=== PATIENT | female | born 1970 | race Caucasian/White ===

== ENCOUNTER → 2020-10-25 11:15 | Outpatient (CLI) | payer OTHER, SELFPAY ==
--- NOTE | 2020-10-25 | DI.MRI.S_ITS ---
BREAST MRI OF BOTH BREASTS- WITH AUGMENTATION: 10/25/2020 CLINICAL: Previous silicone rupture. No prior exams were available for comparison. Informed consent was obtained from the patient. Implant sequence, axial T1, T2, and sagittal T1 images were obtained with a dedicated breast coil. Image quality: There is inhomogeneous fat saturation and motion artifact limiting evaluation. The patient terminated the study prior to the administration of intravenous contrast. Right breast: A silicone implant is demonstrated with internal curvilinear filling defects suggestive of intracapsular rupture. No evidence of extracapsular implant rupture. No definite free silicone demonstrated within the breast. No discrete mass is identified within the right breast in the absence of intravenous contrast Left breast: A silicone implant is demonstrated with internal curvilinear filling defects also suggestive of intracapsular rupture. No evidence of extracapsular implant rupture. No definite free silicone demonstrated within the breast. No discrete mass is identified in the absence of intravenous contrast. Miscellaneous: No axillary or internal mammary lymphadenopathy by size criteria. IMPRESSION: BENIGN 1. Bilateral silicone implants with findings suggestive of bilateral intracapsular implant rupture. No evidence of extracapsular rupture or definite free silicone in the breast. 2. No discrete mass identified in the breasts in the absence of intravenous contrast. Recommend followup screening mammography. This exam was interpreted at Station ID: [id number]. Electronically Signed By: Samm Sanders M.D. ddp/:10/25/2020 14:51:02 ACR BI-RADS Category 2: Benign Finding(s) 3342F
== END ==
PROVIDERS: PCP Nurse Practitioner Family; Referring Provider Nurse Practitioner Family; Visit Provider Nurse Practitioner Family
DX: T85.43XA Leakage of breast prosthesis and implant, initial encounter (principal)
CPT/HCPCS: 77047

== ENCOUNTER → 2021-09-26 13:29 | Outpatient (CLI) | payer OTHER, SELFPAY ==
--- NOTE | 2021-09-26 | DI.CT.S_ITS ---
PROCEDURE: CT CHEST WO CON INDICATIONS: Solitary pulmonary nodule TECHNIQUE: Noncontrast 2.0-2.5 mm thick sections acquired from the pulmonary apices to the posterior costophrenic angles. 7 mm thick axial MIP and 5 mm coronal and sagittal reformats were then acquired. A low radiation dose technique was utilized. COMPARISON: None. FINDINGS: Image quality: Diagnostic, given the low radiation dose technique. Lungs and pleura: Tiny 2 mm nodule in lateral periphery of left lower lobe is seen series 3, image 181. 3 mm solid nodule is seen in posterior medial left lower lobe series 3, image 223. 8 x 6 mm ground-glass density nodule is seen in anterior aspect of right upper lobe series 3 image 158. There is no pleural effusion or pneumothorax. Central and peripheral airway is patent. Mediastinum: Heart size is normal. No pericardial effusion. No mediastinal adenopathy by size criteria. Thoracic aorta and central pulmonary arteries are normal in size. Esophagus is normal in caliber. No hiatal hernia. Bones and chest wall: No suspicious bony lesions. No vertebral body compression fractures. Degenerative endplate changes throughout thoracic spine is seen. No axillary or supraclavicular adenopathy by size criteria. Thyroid gland is within normal limits. Bilateral breast implants are noted and are grossly intact on the current study. Abdomen: Visualized upper abdomen solid organs and bowel loops appear normal in the absence of contrast. IMPRESSION: 1. 8 x 6 mm ground-glass density nodule in right upper lobe with additional tiny 2-3 mm solid nodule seen in left lower lobe as described above. Comparison with prior study can be helpful. Otherwise, suggest CT chest follow-up in 6-12 months. 2. No mediastinal or hilar lymphadenopathy. 3. Bilateral breast implants are grossly intact. Fleischner Society criteria for SOLID lung nodule followup. Nodule size (mm)Low-risk patientHigh-risk patient<6 (single or multiple)No routine followup.Optional CT at 12 months. 6-8 (single or multiple)CT at 6-12 months, then optional CT at 18-24 mo.CT at 6-12 months, then CT at 18-24 months. >8 (single)CT at 3 months, PET-CT, or biopsy. Same as for low-risk pts. >8 (multiple)CT at 3-6 months, then optional CT at 18-24 mo.CT at 3-6 months, then CT at 18-24 months. Fleischner Society criteria for SUB-SOLID lung nodule followup. Solitary pure ground-glass nodules<6 mm (ground glass or part solid)No followup needed. 6 mm or larger (ground glass)CT at 6-12 months to confirm persistence, then CT every 2 years until 5 years.6 mm or larger (part solid)CT at 3-6 months to confirm persistence, then annual CT until 5 years if unchanged and solid component remains <6 mm. Multiple sub-solid nodules<6 mmCT at 3-6 months, then CT consider at 2 & 4 years for high risk patients. [address] at 3-6 months. Subsequent management based on most suspicious lesions. Recommendations do not apply to lung cancer screening, patients with immunosuppression, or patients with known primary cancer. Dictated by: Perfecto Dominguez M.D. on 09/27/2021 at 8:23 Approved by: Perfecto Dominguez M.D. on 09/27/2021 at 8:30
== END ==
PROVIDERS: PCP Physician Assistant; Referring Provider Physician Assistant; Visit Provider Physician Assistant
DX: R91.1 Solitary pulmonary nodule (principal)
CPT/HCPCS: 71250